=== PATIENT | female | born 1995 | race African-American/Black ===

== ENCOUNTER 2023-01-12 12:15 | Emergency (ER) | payer OTHER ==
[~2023-01-12] VITALS: Ht 170.2 cm; Wt 76.2 kg
[2023-01-12 12:27] VITALS: BP 117/82
--- NOTE | 2023-01-12 12:45 | NUR ---
urine collected and sent to lab
[2023-01-12] MEDS ORDERED: FLUCONAZOLE (100 MG) 100 MG TABLET ONE (12:46)
[2023-01-12] MEDS ORDERED: FLUCONAZOLE (100 MG) 100 MG TABLET PO ONE ×2 (13:00)
--- NOTE | 2023-01-12 13:08 | NUR ---
Patient discharged to home in stable condition. Written and verbal after care instructions given. Patient verbalizes understanding of instruction.
[2023-01-12 13:22] LABS: BILIRUBIN,URINE 1+ (NEGATIVE); COLOR,URINE DARK YELLOW (YELLOW); LEUKOCYTE ESTERASE ,URINE TRACE (NEGATIVE); NITRITE, URINE NEGATIVE (NEGATIVE); PROTEIN,URINE NEGATIVE (NEGATIVE); UGLUCOSE NEGATIVE (NEGATIVE); UROBILINOGEN,URINE 0.2 EU/dL (0.2)
[2023-01-12 13:39] LABS: BACTERIA,URINE Moderate /HPF (None Seen); RBC,URINE NONE SEEN /HPF (0-2); SQUAMOUS EPITHELIAL CELL,UR Many /HPF (None Seen); WBC,URINE 0-2 /HPF (0-3)
== END 2023-01-12 13:10 | disposition home or self-care (01) ==
LOC: ER 12:19
DX: B37.31 Acute candidiasis of vulva and vagina (principal); Z60.2 Problems related to living alone
CPT/HCPCS: 81001; 84703-TC; 87086-TC

== ENCOUNTER 2023-12-08 11:19 | Emergency (ER) | payer OTHER ==
[~2023-12-08] VITALS: Ht 170.2 cm; Wt 82.1 kg
[2023-12-08 11:27] VITALS: BP 141/72; TEMP 98.7; O2SAT 100
[2023-12-08] MEDS ORDERED: AMOX-427 PO (11:34)
== END 2023-12-08 11:40 | disposition home or self-care (01) ==
LOC: ER 11:22
DX: K02.9 Dental caries, unspecified (principal); Z60.2 Problems related to living alone